=== PATIENT | male | born 1955 | race Hispanic/Latino ===

== ENCOUNTER 2017-04-29 13:57 | Emergency (ER) | payer SELFPAY ==
[2017-04-29 14:16] VITALS: BP 125/60
[2017-04-29] MEDS ORDERED: KEPPRA 1,000 MG/NS 0.75% 100ML 1,000 MG/100 ML BAG IV ONE (15:02)
--- NOTE | 2017-04-29 15:39 | Emergency Department Report ---
ED Syncope HPI - General Chief Complaint: Syncope Stated Complaint: SYNCOPE, LOW BP Time Seen by Provider: 04/29/17 15:35 - History of Present Illness Initial Comments: Patient is a 61-year-old male who is presenting status post syncopal episode. Patient states his brother had a seizure and he thought that his brother had in front of him and the patient began to hyperventilate and passed out. Patient has a history of syncope in the past. Patient states he feels fine now is back to his baseline and would like to be discharged home. Patient denies any chest pain shortness of breath headache fevers chills focal neurological deficit at this time - Related Data Allergies/Adverse Reactions: Allergies No Known Allergies Allergy (Unverified 03/21/14 22:42) Home Medications: Ambulatory Orders Cyclobenzaprine [Flexeril 10mg] 10 mg PO TID PRN 03/22/14 FLUoxetine [PROzac] 20 mg PO QDAY 03/22/14 HYDROcodone/APAP 5-325 [[place] 5-325 mg TAB] 10 - 325 mg PO Q6H PRN 03/22/14 QUEtiapine [SEROquel] 100 mg PO QHS 03/22/14 Zolpidem Tartrate [Ambien] 10 mg PO QDAY 03/22/14 buPROPion XL [Wellbutrin XL] 150 mg PO QAM 03/22/14 ED Review of Systems ROS: Stated complaint: SYNCOPE, LOW BP Other details as noted in HPI Comment: All other systems reviewed and negative ED Past Medical Hx - Past Medical History Hx Psychiatric Treatment: Yes ([place] - 7 years ago.) Additional medical history: spinal prob. - Social History Smoking Status: Current Every Day Smoker Substance Use Type: None - Medications Home Medications: Home Medications Medication Instructions Recorded Confirmed Last Taken Type Cyclobenzaprine [Flexeril 10mg] 10 mg PO TID PRN 03/22/14 03/22/14 Unknown History FLUoxetine [PROzac] 20 mg PO QDAY 03/22/14 03/22/14 Unknown History HYDROcodone/APAP 5-325 [[place] 10 - 325 mg PO Q6H PRN 03/22/14 03/22/14 Unknown History 5-325 mg TAB] QUEtiapine [SEROquel] 100 mg PO QHS 03/22/14 03/22/14 Unknown History Zolpidem Tartrate [Ambien] 10 mg PO QDAY 03/22/14 03/22/14 Unknown History buPROPion XL [Wellbutrin XL] 150 mg PO QAM 03/22/14 03/22/14 Unknown History ED Physical Exam - General Limitations: No Limitations General appearance: alert, in no apparent distress - Head Head exam: Present: atraumatic, normocephalic - Eye Eye exam: Present: normal appearance - ENT ENT exam: Present: mucous membranes moist - Neck Neck exam: Present: normal inspection - Respiratory Respiratory exam: Present: normal lung sounds bilaterally. Absent: respiratory distress - Cardiovascular Cardiovascular Exam: Present: regular rate, normal rhythm. Absent: systolic murmur, diastolic murmur, rubs, gallop - GI/Abdominal GI/Abdominal exam: Present: soft, normal bowel sounds - Rectal Rectal exam: Present: deferred - Extremities Exam Extremities exam: Present: normal inspection - Back Exam Back exam: Present: normal inspection - Neurological Exam Neurological exam: Present: alert, oriented X3 - Psychiatric Psychiatric exam: Present: normal affect, normal mood - Skin Skin exam: Present: warm, dry, intact, normal color. Absent: rash ED Course Vital Signs 04/29/17 14:11 Temperature 97.8 F Pulse Rate 65 Respiratory 16 Rate Blood Pressure 125/60 O2 Sat by Pulse 99 Oximetry ED Medical Decision Making - Medical Decision Making Patient's blood pressure is within normal limits at this time patient feels well he is ambulatory and is not dizzy upon standing believe the patient simply had a Lloyd's vasovagal syncopal episode will be discharged home Critical care attestation.: If time is entered above; I have spent that time in minutes in the direct care of this critically ill patient, excluding procedure time. ED Disposition Clinical Impression: Vasovagal attack Disposition: DC-01 TO HOME OR SELFCARE Is pt being admited?: No Does the pt Need Aspirin: No Condition: Stable
[2017-04-29] MEDS ORDERED: TORADOL ONE (16:02)
== END 2017-04-29 16:23 | disposition home or self-care (01) ==
LOC: ED 13:57
DX: R55 Syncope and collapse (principal); F17.200 Nicotine dependence, unspecified, uncomplicated
CPT/HCPCS: 99283; J1885; J1953